=== PATIENT | male | born 1990 | race Two or more races ===

== ENCOUNTER 2020-05-30 11:54 | Outpatient (REF) | payer OTHER, SELFPAY ==
[2020-05-30 13:11] LABS: Free T4 (Free Thyroxine) 1.31 ng/dL (0.71-1.85)
== END 2020-05-30 11:55 | disposition home or self-care (01) ==
LOC: HO.LAB 11:54
PROVIDERS: PCP Internal Medicine; Visit Provider Internal Medicine Endocrinology, Diabetes & Metabolism
DX: E03.8 Other specified hypothyroidism (principal)
CPT/HCPCS: 36415; 84439; 84443

== ENCOUNTER → 2020-06-08 08:26 | Outpatient (BNVA) | payer OTHER, SELFPAY | PROVIDERS: PCP Internal Medicine; Referring Provider Internal Medicine; Visit Provider Internal Medicine Endocrinology, Diabetes & Metabolism | DX: E03.8 Other specified hypothyroidism (principal); E06.3 Autoimmune thyroiditis | CPT/HCPCS: 99212 ==

== ENCOUNTER 2020-07-19 15:19 | Outpatient (REF) | payer OTHER, SELFPAY | END 2020-07-19 15:20 | disposition home or self-care (01) | LOC: HO.LAB 15:19 | PROVIDERS: Visit Provider Internal Medicine | DX: Z20.822 Contact with and (suspected) exposure to COVID-19 (principal) | CPT/HCPCS: C9803; U0003 ==

== ENCOUNTER 2020-07-20 09:13 | Outpatient (REF) | payer OTHER, SELFPAY ==
[2020-07-20 11:59] LABS: SARS COV2 PCR INHOUSE NEGATIVE (Negative)
== END 2020-07-20 09:14 | disposition home or self-care (01) ==
LOC: HO.LAB 09:13
PROVIDERS: Visit Provider Internal Medicine
DX: Z20.822 Contact with and (suspected) exposure to COVID-19 (principal)
CPT/HCPCS: C9803; U0003

== ENCOUNTER 2020-11-18 12:19 | Outpatient (REF) | payer OTHER, SELFPAY ==
[2020-11-18 13:53] LABS: Thyroid Stimulating Hormone 1.13 uIU/mL (0.32-4.0)
== END 2020-11-18 12:20 | disposition home or self-care (01) ==
LOC: HO.LAB 12:19
PROVIDERS: PCP Internal Medicine; Visit Provider Internal Medicine Endocrinology, Diabetes & Metabolism
DX: E03.8 Other specified hypothyroidism (principal); E06.3 Autoimmune thyroiditis
CPT/HCPCS: 36415; 84439; 84443

== ENCOUNTER 2021-01-29 00:52 | Emergency (ER) | payer OTHER, SELFPAY ==
[2021-01-29 01:00] VITALS: BP 152/112; PULSE 81; RESP 16; TEMP 36.6; O2SAT 100; BMI 35.2
[2021-01-29 01:30] LABS: COVID-19 Test Negative (Negative); IDNOW Serial# 9DD0AD1C
--- NOTE | 2021-01-29 03:26 | ED.HA ---
HPI - Headache General Chief Complaint: Headache Stated Complaint: migraine for week Time Seen by Provider: 01/29/21 03:26 Source: patient Mode of arrival: ambulatory History of Present Illness HPI Narrative: 30-year-old male without significant past medical history presents with 1 week of right upper tooth pain after it cracked that has now resulted in increasing pain into the right maxillary temporal and frontal sinuses. Patient denies any fever, chills, neck pain, changes in vision or hearing. Related Data Previous Rx's Medication Instructions Recorded Synthroid 200 mcg tablet 200 mcg PO DAILY 90 Days #90 tab NS 06/08/20 (levothyroxine) amoxicillin 875 mg-potassium 1 tab PO Q12H 5 Days #10 tab 01/29/21 clavulanate 125 mg tablet (Augmentin) ketorolac 10 mg tablet 10 mg PO Q6H PRN 5 Days #20 tab 01/29/21 Allergies Allergy/AdvReac Type Severity Reaction Status Date / Time No Known Allergies Allergy Verified 01/29/21 01:00 [No Known Allergies*] Review of Systems Review of Systems: Pertinent positives and negatives as stated in HPI 10 point review of systems is otherwise negative. PMFSH Past Medical History Source: nursing notes reviewed Medical History Hypothyroidism Social History Social History Advance Directives: No Advance Directives Information Provided: Yes Physical Exam Vital Signs: Vital Signs: Last Vital Signs Temp 97.8 F 01/29/21 01:00 Pulse 81 01/29/21 01:00 Resp 16 01/29/21 01:00 BP 152/112 H 01/29/21 01:00 Pulse Ox 100 01/29/21 01:00 Body Mass Index 35.2 VITAL SIGNS: Reviewed. GENERAL: Well developed, well nourished, in no acute distress. HEAD: Normocephalic/atraumatic, tenderness to palpation across right axillary/frontal sinuses EYES: PERRLA, EOMI intact without pain, no nystagmus EARS: Ext canals without abnormality, TMs non-bulging and non-erythematous NOSE: Nares patent bilateral OROPHARYNX: no oral lesions noted, posterior pharynx clear and non-erythematous without noted tonsillar enlargement/erythema/exudates, noted cracked right upper molar with some mild swelling that was also noted to be swelling on the face NECK: Supple, no adenopathy LUNGS: Normal breath sounds. SpO2<100> CARDIOVASCULAR: Regular rate and rhythm without noted murmurs ABDOMEN: Soft, non-tender, non-distended with bowel sounds. NEUROLOGIC: Alert and oriented x 4. Strength and sensation to light touch were grossly intact x 4. Course Course Course Narrative: 30-year-old male with history and clinical presentation consistent with dental caries and toothache with likely sinus involvement. Patient will receive combination analgesics as well as initial antibiotics and then be discharged home in stable condition with remaining course of antibiotics and instructions to follow-up with dentist. MDM - Headache Lab Data Labs: Lab Results 01/29/21 Range/Units 01:07 COVID-19 (TOYA) Negative (Negative) COVID-19 Clin Com See Note Discharge Plan Discharge Clinical Impression: Headache, Sinusitis, Toothache Patient Disposition: Home, Self-Care Instructions: Sinusitis (ED), Toothache (ED) Additional Instructions: Tylenol 1000 mg, orally, every 6 hours as needed for pain control. Do not exceed 4000 mg within 24 hours. Follow-up with the dentist at your earliest convenience for definitive treatment. Follow-up with your primary care provider in the next 2-3 days for re-evaluation and further outpatient management. Return to the ER for acute worsening of symptoms. Prescriptions: New ketorolac 10 mg tablet 10 mg PO Q6H PRN (Reason: pain) 5 Days Qty: 20 RF: 0 amoxicillin-pot clavulanate [Augmentin] 875-125 mg tablet 1 tab PO Q12H 5 Days Qty: 10 RF: 0 No Action levothyroxine [Synthroid] 200 mcg tablet 200 mcg PO DAILY 90 Days Qty: 90 RF: 3
[2021-01-29] MEDS: Ketorolac Tromethamine 15 MG/ML VIAL IM (03:33)
[2021-01-29] MEDS: Acetaminophen 325 MG TABLET 975 MG PO (03:33)
[2021-01-29] MEDS: Amoxicillin/Potassium Clav 875 MG TABLET PO (03:34)
== END 2021-01-29 03:47 | disposition home or self-care (01) ==
PROVIDERS: Emergency Provider Student in an Organized Health Care Education/Training Program
DX: R51.9 Headache, unspecified (principal); J32.9 Chronic sinusitis, unspecified; K08.89 Other specified disorders of teeth and supporting structures; K02.9 Dental caries, unspecified; Z20.822 Contact with and (suspected) exposure to COVID-19
CPT/HCPCS: 36415; 87635; 96372; 99284; J1885

== ENCOUNTER 2021-02-05 13:21 | Emergency (ER) | payer BC, OTHER, SELFPAY ==
[2021-02-05 13:25] VITALS: BP 143/96; PULSE 92; RESP 16; TEMP 36.8; O2SAT 98; BMI 35.2
--- NOTE | 2021-02-05 13:58 | ED_ITS ---
HPI - Skin/Abscess/Foreign Bdy General Chief complaint: Skin/Abscess/Foreign Body Stated complaint: rash Time Seen by Provider: 02/05/21 13:50 Source: patient Mode of arrival: ambulatory Limitations: no limitations History of Present Illness HPI narrative: Patient presents to the ED for left side of chest painful rash that started as tingling yesterday and than rash appeared. patient States couple of days earlier he had bodyaches and fever and was told might have been due to a tooth infection. patient states he completed his amoxicilllin prescription. Related Data Previous Rx's Medication Instructions Recorded Synthroid 200 mcg tablet 200 mcg PO DAILY 90 Days #90 tab NS 06/08/20 (levothyroxine) amoxicillin 875 mg-potassium 1 tab PO Q12H 5 Days #10 tab 01/29/21 clavulanate 125 mg tablet (Augmentin) ketorolac 10 mg tablet 10 mg PO Q6H PRN 5 Days #20 tab 01/29/21 naproxen 500 mg tablet 500 mg PO BID PRN #20 tab 02/05/21 valacyclovir 1 gram tablet 1,000 mg PO TID 7 Days #21 tab 02/05/21 Allergies Allergy/AdvReac Type Severity Reaction Status Date / Time No Known Allergies Allergy Verified 01/29/21 01:00 [No Known Allergies*] Review of Systems Review of Systems: Yes all other systems are reviewed and are negative Constitutional: Constitutional: Reports as per HPI and Reports no additional constitutional complaints Eyes: Eyes: Reports as per HPI and Reports no additional eye complaints ENT: Reports system reviewed and no additional complaints, except as docum ented and Reports as per HPI Cardiovascular: Cardiovascular: Reports as per HPI, Reports no additional cardiovascular complaints and Reports chest pain (left sided painful rash) Respiratory: Respiratory: Reports as per HPI and Reports no additional respiratory complaints Gastrointestinal: Gastrointestinal: Reports as per HPI and Reports no additional gastrointestinal complaints Genitourinary: Genitourinary: Reports no additional male genitourinary complaints and Reports as per HPI Musculoskeletal: Musculoskeletal: Reports no additional musculoskeletal complaints and Reports as per HPI Integumentary/Breasts: Skin/Breast: Reports system reviewed and no additional complaints, except as docu and Reports as per HPI Neurologic: Reports system reviewed and no additional complaints, except as documented and Reports as per HPI [facility] Past Medical History Medical History Hypothyroidism Social History Social History Advance Directives: No Advance Directives Information Provided: Yes Physical Exam Vital Signs: Vital Signs: Last Vital Signs Temp 98.3 F 02/05/21 13:25 Pulse 92 02/05/21 13:25 Resp 16 02/05/21 13:25 BP 143/96 H 02/05/21 13:25 Pulse Ox 98 02/05/21 13:25 Body Mass Index 35.2 Const: General: cooperative, healthy appearing, comfortable, no acute distress, well developed, alert, awake and Physically active HENMT: Other: negative for rash in ears or on face. Head: Yes normal to inspection, Yes No palpable skull fracture present, Yes normocephalic, Yes atraumatic and No abrasion Eyes: General: appearance normal, both eyes and all related structures Neck: Neck: Yes normal visual inspection, Yes full ROM, Yes no lymphadenopathy, Yes no meningeal signs, Yes trachea midline, Yes supple and No tender Chest: Chest/axillae images: 1. positive for erythematous papules rash. Resp: Effort & Inspection: normal respiratory effort and able to speak in complete sentences Auscultation: clear to auscultation bilaterally Cardio: Jugular venous distension: no JVD Heart sounds: S1 normal heart sound present and S2 normal heart sound present GI: Inspection: Yes normal to inspection and No abdominal wall ecchymosis Palpation (GI): Soft to palpation, not firm, nontender, no guarding and not rig id : General: No CVA tenderness and Yes no CVA tenderness Back/Spine/Pelvis: Back: no CVA tenderness, No CVA tenderness and No back tenderness Skin: Other: shingles General skin exam: elasticity normal Neuro: General: no meningeal signs Extrem: General: Yes normal to inspection and Yes full ROM Psych: Appearance: grossly normal, well kempt and not disheveled Course Course Course Narrative: HIstory and physical exam indicates shingles Reevaluation(s) Reevaluation #1: Patieint will be discharged with pain meds and antiviral medication. no rash on nose or face to suspect herpes shingles in the eye. MDM - Skin/Abscess/Foreign Bdy MDM Narrative Medical decision making narrative: herpes zoster Discharge Plan Discharge Clinical Impression: Herpes zoster Patient Disposition: Home, Self-Care Instructions: Shingles (ED) Additional Instructions: REturn to the ED immediately for any rash on face/nose, ear pain, worseing, rash, headache, change in visions, or any other concerning symptmos. Please follow up with PCP. Try to stay away from 5 month baby and 5 yold child at least within the first 5 days of infection. if around kids wear gloves and mask and clean everything you touch. Prescriptions: New valacyclovir 1 gram tablet 1,000 mg PO TID 7 Days Qty: 21 RF: 0 naproxen 500 mg tablet 500 mg PO BID PRN (Reason: pain) Qty: 20 RF: 0 No Action ketorolac 10 mg tablet 10 mg PO Q6H PRN (Reason: pain) 5 Days Qty: 20 RF: 0 amoxicillin-pot clavulanate [Augmentin] 875-125 mg tablet 1 tab PO Q12H 5 Days Qty: 10 RF: 0 levothyroxine [Synthroid] 200 mcg tablet 200 mcg PO DAILY 90 Days Qty: 90 RF: 3 Stand Alone Forms: Work/School Release Interventions: ED Discharge Assessment Last Done: 02/05/21 14:28 Discharge Date/Time: 02/05/21 14:30 Print Language: Italian
== END 2021-02-05 14:30 | disposition home or self-care (01) ==
PROVIDERS: Emergency Provider Emergency Medicine; PCP Internal Medicine
DX: B02.9 Zoster without complications (principal); Z79.899 Other long term (current) drug therapy
CPT/HCPCS: 99283

== ENCOUNTER 2021-06-29 11:39 | Outpatient (REF) | payer BC, SELFPAY ==
--- NOTE | ~2021-06-29 | XR_ITS ---
EXAMINATION: XR FOOT, RIGHT CLINICAL INFORMATION: Pain COMPARISON: None TECHNIQUE: AP, lateral, and oblique views of the right foot. FINDINGS: Bone alignment is normal. No fracture or dislocation is seen. There are are small osteophytes at the talonavicular joint. Joint spaces are otherwise normal. There are large calcaneal spurs at the Achilles tendon insertion. XR/XR foot RT min 3V IMPRESSION: Calcaneal spurs at the Achilles tendon insertion. Mild degenerative changes at the talonavicular joint.
[2021-06-29 13:23] LABS: Free T4 (Free Thyroxine) 1.68 ng/dL (0.71-1.85); Thyroid Stimulating Hormone 2.42 uIU/mL (0.32-4.0)
== END 2021-06-29 11:40 | disposition home or self-care (01) ==
LOC: HO.LAB 11:39
PROVIDERS: PCP Internal Medicine; Visit Provider Internal Medicine
DX: M79.671 Pain in right foot (principal); E06.3 Autoimmune thyroiditis; E03.8 Other specified hypothyroidism
CPT/HCPCS: 36415; 73630; 84439; 84443

== ENCOUNTER → 2021-07-06 13:25 | Outpatient (BNVA) | payer BC, SELFPAY | PROVIDERS: PCP Internal Medicine; Visit Provider Nurse Practitioner Gerontology | DX: E06.3 Autoimmune thyroiditis (principal); E03.8 Other specified hypothyroidism; E66.9 Obesity, unspecified; Z68.34 Body mass index [BMI] 34.0-34.9, adult | CPT/HCPCS: 99212 ==

== ENCOUNTER 2021-08-29 12:25 | Outpatient (REF) | payer BC, SELFPAY ==
[2021-08-29 13:09] LABS: COVID-19 Test Positive (Negative); IDNOW Serial# 55D5AD1C
== END 2021-08-29 12:26 | disposition home or self-care (01) ==
LOC: HO.LAB 12:25
PROVIDERS: Visit Provider Internal Medicine
DX: Z20.822 Contact with and (suspected) exposure to COVID-19 (principal)
CPT/HCPCS: 87635; C9803

== ENCOUNTER 2022-04-28 08:57 | Outpatient (REF) | payer BC, SELFPAY ==
[2022-04-28 10:21] LABS: Free T4 (Free Thyroxine) 1.23 ng/dL (0.71-1.85)
== END 2022-04-28 08:58 | disposition home or self-care (01) ==
LOC: HO.LAB 08:57
PROVIDERS: PCP Internal Medicine; Visit Provider Nurse Practitioner Gerontology
DX: E03.8 Other specified hypothyroidism (principal); E06.3 Autoimmune thyroiditis
CPT/HCPCS: 36415; 84439; 84443

== ENCOUNTER 2022-09-07 14:33 | Outpatient (REF) | payer BC, SELFPAY ==
[2022-09-07 16:37] LABS: Alanine Aminotransferase 35 U/L (0-40); Albumin Level 4.3 g/dL (3.5-5.0); Alkaline Phosphatase 164 U/L (39-117); Anion Gap 14 (12-20); Aspartate Amino Transferase 21 U/L (5-37); Bilirubin Total 1.1 mg/dL (0.0-1.0); Blood Urea Nitrogen 8 mg/dL (9-16); Calcium 9.6 mg/dL (8.4-10.2); Carbon Dioxide 25 mmol/L (22-29); Chloride 106 mmol/L (96-108); Cholesterol 191 mg/dL; Estimated Glomerular Filt Rate > 60; Glucose Fasting 97 mg/dL (60-99); HDL Cholesterol 25 mg/dL; LDL Cholesterol Calculated 145 mg/dl; Potassium 4.2 mmol/L (3.3-5.1); Sodium 141 mmol/L (135-145); Total Protein 7.1 g/dL (6.5-8.0); Triglycerides 106 mg/dL
[2022-09-07 16:51] LABS: Thyroid Stimulating Hormone 3.12 uIU/mL (0.32-4.0)
== END 2022-09-07 14:34 | disposition home or self-care (01) ==
LOC: HO.LAB 14:33
PROVIDERS: PCP Internal Medicine; Visit Provider Internal Medicine
DX: E66.9 Obesity, unspecified (principal); E03.8 Other specified hypothyroidism; E06.3 Autoimmune thyroiditis
CPT/HCPCS: 36415; 80053; 80061; 84443

== ENCOUNTER 2023-09-17 09:00 | Outpatient (AMB) | payer BC, SELFPAY ==
[2023-09-17 09:17] VITALS: BP 136/82; PULSE 91; O2SAT 98; BMI 36.4
--- NOTE | 2023-09-17 09:17 | MHC.PC.OV ---
Vital Signs 09/17/23 09:17 Height 6 ft Weight 268 lb 6 oz BMI 36.4 BP 136/82 Blood Pressure Location Lt brachial Position Sitting Pulse 91 Pulse Source Pulse Oximeter Pulse Oximetry (%) 98 Oxygen Delivery Method Room Air Intake Visit Reasons: Annual Exam Intake Note: Patient is here today for a physical. 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 Required: No Accompanied by: Self / Same As Patient Allergies No Known Allergies [No Known Allergies*] Allergy (Verified 09/17/23 09:30) Medication List - Last Reconciled 09/17/23 by Leanna Grimaldo MD Synthroid (levothyroxine) 200 mcg PO DAILY 90 days NS Tobacco use date assessed: 09/17/23 Dental Screening Dental Screen Date: 09/17/23 Did you have a dental visit in the last 12 months?: Yes Did you have a dental problem in the last 6 months where you did not have access to dental care?: No Was dental information given to patient?: Patient has dentist HPI HPI Comments History of Present Illness Details This is a 32-year-old male that comes for his physical exam. Has family history of colon cancer in first-degree relative at 51 years old therefore you will need his 1st colonoscopy at 38 years old. Denies any chest pain or shortness on breath. No acute complaints. Compliant with medication. TSH will be repeated. He has obese with a BMI of 36.4 and has tried diet and exercise in the past with no significant improvement. I will start him on Wegovy. Side effects such as nausea, vomiting and abdominal pain were thoroughly explained. [facility] Medical History (Updated 09/17/23 @ 11:52 by Leanna Grimaldo MD) Obesity (BMI 35.0-39.9 without comorbidity) Obesity due to excess calories BMI 33.0-33.9,adult Intractable right heel pain Hypothyroidism Surgical History No pertinent past surgical history Family History Mother No problems noted. Father Colon cancer, Onset Age: 51 Social History Housing: House Alcohol intake: current Alcohol intake frequency: holidays/special occasions only Alcohol type: beer Patient Tobacco Use Status: Never used Tobacco e-Cigarette/Vaping Use: Never Used Second Hand Smoke Exposure: No service: No Current occupational status: employed Current occupational exposures/hazards: No Cognitive needs: No Hearing needs: No Vision needs: No Questionnaire PHQ-9 Over the last 2 weeks, how often have you been bothered by any of the following problems? 1. Little interest or pleasure in doing things: not at all 2. Feeling down, depressed, or hopeless: not at all 3. Trouble falling or staying asleep, or sleeping too much: not at all 4. Feeling tired or having little energy: not at all 5. Poor appetite or overeating: not at all 6. Feeling bad about yourself - or that you are a failure or have let yourself or your family down: not at all 7. Trouble concentrating on things, such as reading the newspaper or watching television: not at all 8. Moving or speaking so slowly that other people could have noticed. Or the opposite - being so fidgety or restless that you have been moving around a lot more than usual: not at all 9. Thoughts that you would be better off or of hurting yourself in some way: not at all Total score: 0 Depression Screening Interpretation: Negative Depression Screening Done: Yes 17666 - PHQ-9 Billing: Yes Source: Developed by Drs. Anjum Prabhakar, Alla Hardy, Juan Vargas and colleagues, with an educational payal from [employer]. Thrive Questionnaire Date Thrive assessed: 09/17/23 I am a: Patient What is your living situation today?: I have a steady place to live Within the past 12 months, did the food you bought not last and you didn't have the money to get more?: Never true Within the past 12 months, did you worry whether your food would run out before you got money to buy more?: Never true Do you have trouble paying for medicines?: No Do you have trouble getting transportation to medical appointments?: No Do you have trouble paying your heating and electricity bill?: No Do you have trouble taking care of your child, family member or friend?: No Do you have trouble with day-to-day activities such as bathing, preparing meals, shopping, managing finances, etc.?: No Are you currently unemployed and looking for a job?: No Are you interested in more education?: No Please select the resources that you would like help with: None Currently or been in a relationship where the following occur: no concerns reported THRIVE Score: 0 AUDIT C Alcohol Use Questionnaire (AUDIT-C) 1. How often do you have a drink containing alcohol?: Monthly or less 2. How many drinks containing alcohol do you have on a typical day when you are drinking?: 1 or 2 3. How often do you have six or more drinks on one occasion?: Never Total Score: 1 Score Reviewed/Action Taken: No АЛЕКСАНДР-7 AMB Questionnaire АЛЕКСАНДР-7 Date АЛЕКСАНДР - 7 assessed: 09/17/23 Feeling nervous, anxious, or on edge: 0 = Not at all Not being able to stop or control worryin = Not at all Worrying too much about different things: 0 = Not at all Trouble relaxin = Not at all Being so restless that it is hard to sit still: 0 = Not at all Becoming easily annoyed or irritable: 0 = Not at all Feeling afraid as if something awful might happen: 0 = Not at all Total АЛЕКСАНДР-7 score (0-4 normal; 5-9 mild; 10-14 moderate; 15-21 severe): 0 Source: Developed by Drs. Anjum Prabhakar, Alla Hardy, Juan Vargas and colleagues, with an educational payal from [employer]. АЛЕКСАНДР-7 Assessment Billing АЛЕКСАНДР-7 Assessment Tool: АЛЕКСАНДР-7 Assessment 39102 Review of Systems Const All systems reviewed & are unremarkable except as noted in HPI and below Card Denies chest pain at rest, Denies chest pain with activity, Denies edema, Denies irregular heart rhythm, Denies claudication, Denies dyspnea, Denies dyspnea on exertion, Denies orthopnea, Denies paroxysmal nocturnal dyspnea and Denies slow heart rate Resp Denies cough, Denies dyspnea and Denies dyspnea on exertion GI Denies abdominal pain, Denies change in bowel habits, Denies excessive flatus, Denies nausea and Denies vomiting Denies urinary hesitancy, Denies urinary incontinence and Denies urinary urgency Physical exam (Primary Care) Vital Signs: Last Vital Signs Pulse 91 09/17/23 09:17 BP 136/82 09/17/23 09:17 Pulse Ox 98 09/17/23 09:17 Oxygen Delivery Method Room Air 09/17/23 09:17 BMI result Body Mass Index 36.4 BMI Assessment/Plan discussion: High BMI High, discussed plan: lifestyle, weight reduction, dietary and physical activity Tobacco/Smoking Status: Tobacco use Status Tobacco use date assessed 09/17/23 09/17/23 09:24 Patient Tobacco Use Status Never used Tobacco 09/17/23 09:24 e-Cigarette/Vaping Use Never Used 09/17/23 09:24 PHQ-9: PHQ-9 Score PHQ-9: Total score 0 09/17/23 09:34 Depression Screening Interpretation: Negative Thrive Assessment: Date of Thrive Assessment Date Thrive assessed 09/17/23 09/17/23 09:24 Currently or been in a relationship where the following occur: no concerns reported Const Orientation/consciousness: patient oriented x3 HENMT Head: Yes normal to inspection, Yes normocephalic and Yes atraumatic Ears: external ears normal Eyes General: appearance normal, both eyes and all related structures Eyelids: Yes eyelids normal Conjunctivae: conjunctivae normal Neck Neck: Yes normal visual inspection and Yes supple Resp Effort & Inspection: normal respiratory effort Auscultation: clear to auscultation bilaterally Cardio Jugular venous distension: no JVD Rate: regular rate Rhythm: regular rhythm Heart sounds: S1 normal heart sound present and S2 normal heart sound present GI Inspection: Yes normal to inspection Palpation (GI): Soft to palpation and nontender Auscultation: normal bowel sounds Skin General skin exam: no rashes or lesions noted Neuro General: patient oriented x3 and no focal motor deficits Extrem General: Yes full ROM Psych Appearance: grossly normal Assessment and Plan Assessment & Plan (1) Physical exam: Code(s): Z00.00 - Encounter for general adult medical examination without abnormal findings Plan: Repeat in a year. Orders: Orders Thyroid Stimulating Hormone Today E03.8 - Other specified hypothyroidism, E06.3 - Autoimmune thyroiditis Referrals Ophthalmology Referral H53.8 - Other visual disturbances Medications: New triamcinolone acetonide 0.1% 1 appl topical BID PRN 30 grams 1RF rash 15 days Coding Level of Care Code Est Pt Prev Care 18-39y(35381) Diagnoses Physical exam Z00.00 Additional Codes АЛЕКСАНДР-7 Assessment Billing - АЛЕКСАНДР-7 Assessment Tool: АЛЕКСАНДР-7 Assessment 46337 ([id number]) Time Spent (min) 32
== END 2023-09-17 09:40 | disposition home or self-care (01) ==
PROVIDERS: Visit Provider Internal Medicine
DX: Z00.00 Encounter for general adult medical examination without abnormal findings (principal)
CPT/HCPCS: 99395

== ENCOUNTER 2024-02-03 07:56 | Outpatient (REF) | payer BC, SELFPAY | END 2024-02-03 07:57 | disposition home or self-care (01) | LOC: HO.LAB 07:56 | PROVIDERS: PCP Internal Medicine; Visit Provider Internal Medicine | DX: L98.9 Disorder of the skin and subcutaneous tissue, unspecified (principal); E03.8 Other specified hypothyroidism; E06.3 Autoimmune thyroiditis; Z28.21 Immunization not carried out because of patient refusal | CPT/HCPCS: 36415; 84443; 90471 ==

== ENCOUNTER 2024-02-03 07:56 | Outpatient (AMB) | payer BC, SELFPAY ==
[2024-02-03 08:04] VITALS: BP 130/80; BMI 35.5
--- NOTE | 2024-02-03 08:04 | MHC.PC.OV ---
Vital Signs 02/03/24 08:04 Height 6 ft Weight 262 lb BMI 35.5 BP 130/80 Blood Pressure Location Lt brachial Position Sitting Intake Visit Reasons: swelling and pain in bilateral legs x 3-4 days. Group Therapy Counselor Required: No Accompanied by: Self / Same As Patient Allergies No Known Allergies [No Known Allergies*] Allergy (Verified 02/03/24 08:16) Medication List - Last Reconciled 02/03/24 by Leanna Grimaldo MD Synthroid (levothyroxine) 200 mcg PO DAILY 90 days NS triamcinolone acetonide 0.1% 1 appl topical BID PRN 15 days Tobacco use date assessed: 09/17/23 Dental Screening Dental Screen Date: 02/03/24 Did you have a dental visit in the last 12 months?: Yes Did you have a dental problem in the last 6 months where you did not have access to dental care?: No Was dental information given to patient?: Patient has dentist HPI HPI Comments History of Present Illness Details This is a 33-year-old male with hypothyroidism that complains of dry cracked skin inhaled bilateral that started few weeks ago. He does have right plantar fascitis and sometimes needs to be out of work for 3-4 days to recover. Will order TSH to check for his hypothyroidism. Will order a cream for his skin that is tender to palpation. Will refer to Podiatry for plantar fascitis. Exercises for plantar fascitis were discussed. [facility] Medical History (Updated 02/03/24 @ 08:30 by Leanna Grimaldo MD) Obesity (BMI 35.0-39.9 without comorbidity) Obesity due to excess calories BMI 33.0-33.9,adult Intractable right heel pain Hypothyroidism Surgical History No pertinent past surgical history Family History Mother No problems noted. Father Colon cancer, Onset Age: 51 Social History Housing: House Alcohol intake: current Alcohol intake frequency: holidays/special occasions only Alcohol type: beer Patient Tobacco Use Status: Never used Tobacco e-Cigarette/Vaping Use: Never Used Second Hand Smoke Exposure: No service: No Current occupational status: employed Current occupational exposures/hazards: No Cognitive needs: No Hearing needs: No Vision needs: No Questionnaire Thrive Questionnaire Date Thrive assessed: 09/17/23 АЛЕКСАНДР-7 AMB Questionnaire АЛЕКСАНДР-7 Date АЛЕКСАНДР - 7 assessed: 09/17/23 Source: Developed by Drs. Anjum Prabhakar, Alla Hardy, Juan Vargas and colleagues, with an educational payal from [employer]. Review of Systems Const All systems reviewed & are unremarkable except as noted in HPI and below Card Denies chest pain at rest, Denies chest pain with activity, Denies edema, Denies irregular heart rhythm, Denies claudication, Denies dyspnea, Denies dyspnea on exertion, Denies orthopnea, Denies paroxysmal nocturnal dyspnea and Denies slow heart rate Resp Denies cough, Denies dyspnea and Denies dyspnea on exertion GI Denies abdominal pain, Denies change in bowel habits, Denies excessive flatus, Denies nausea and Denies vomiting Denies urinary hesitancy, Denies urinary incontinence and Denies urinary urgency Musc Denies abnormal gait, Denies atrophy, Denies deformity and Denies limited range of motion Skin/Breast Denies bleeding lesions, Denies changing lesions, Reports new lesions and Denies rash Neuro Denies abnormal gait, Denies behavioral changes and Denies lack of coordination Psych Denies behavioral changes Physical exam (Primary Care) Vital Signs: Last Vital Signs BP 130/80 02/03/24 08:04 BMI result Body Mass Index 35.5 BMI Assessment/Plan discussion: High BMI High, discussed plan: lifestyle, weight reduction, dietary and physical activity Tobacco/Smoking Status: Tobacco use Status Tobacco use date assessed 09/17/23 02/03/24 08:07 Patient Tobacco Use Status Never used Tobacco 02/03/24 08:07 e-Cigarette/Vaping Use Never Used 02/03/24 08:07 Thrive Assessment: Date of Thrive Assessment Date Thrive assessed 09/17/23 02/03/24 08:07 Resp Effort & Inspection: normal respiratory effort Auscultation: clear to auscultation bilaterally Cardio Jugular venous distension: no JVD Rate: regular rate Rhythm: regular rhythm Heart sounds: S1 normal heart sound present and S2 normal heart sound present Skin General skin exam: other (dry skin open in heels bilateral) Extrem General: Yes full ROM Office Procedures Flu Questionnaire Does the patient have a severe egg allergy?: No Immunizations Fluarix Triv [id number] (PF) 45 mcg (15 mcg x 3)/0.5 mL IM syringe Performing Provider: Leanna Grimaldo MD [place] [facility] Documented (not given) by: MARJORIE Keene on 02/03/24 08:08 Reason Not Given: Patient Refused Coding Level of Care Code Est Pt Level 3 (32815) Complex EM visit Add On G2211 Diagnoses Skin lesion 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 (2) Hypothyroidism: Code(s): E03.9 - Hypothyroidism, unspecified Category: Medical Qualifiers: Hypothyroidism type: due to Braydon's thyroiditis Qualified Code(s): E03.8 - Other specified hypothyroidism; E06.3 - Autoimmune thyroiditis Plan: Check TSH today. Orders: Orders Influenza [id number] Immunization Today Z23 - Encounter for immunization Thyroid Stimulating Hormone Today E03.8 - Other specified hypothyroidism, E06.3 - Autoimmune thyroiditis Referrals Podiatry Referral M72.2 - Plantar fascial fibromatosis Medications: New betamethasone valerate 0.1% 1 appl topical DAILY 2 weeks PRN 15 grams 1RF skin irritation
== END 2024-02-03 08:27 | disposition home or self-care (01) ==
PROVIDERS: PCP Internal Medicine; Visit Provider Internal Medicine
DX: L98.9 Disorder of the skin and subcutaneous tissue, unspecified (principal); E03.8 Other specified hypothyroidism; E06.3 Autoimmune thyroiditis; Z23 Encounter for immunization

== ENCOUNTER 2025-03-15 13:35 | Outpatient (AMB) | payer OTHER, SELFPAY ==
--- NOTE | 2025-03-15 13:41 | A.OFFPC_ITS ---
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 Driver Required: No Accompanied by: Self / Same As Patient Allergies No Known Allergies (No Known Allergies*) Allergy (Verified 03/15/25 14:00) Medication List - Last Reconciled 03/15/25 by Leanna Grimaldo MD Synthroid (levothyroxine) 200 mcg PO DAILY 90 days NS Tobacco use date assessed: 03/15/25 Dental Screening Dental Screen Date: 03/15/25 Did you have a dental visit in the last 12 months?: No Did you have a dental problem in the last 6 months where you did not have access to dental care?: No Was dental information given to patient?: No HPI HPI Comments History of Present Illness Details The patient is a 49-year-old individual presenting for his physical exam. The patient has a 23-year history of hypothyroidism and takes Synthroid 200 mcg daily. The patient has had recent difficulty obtaining the medication due to insurance issues but has had a new prescription sent. The patient's father of colon cancer at age 51, and the patient was advised to begin colonoscopy screening at age 38. The patient's mother is alive and has no health problems. The patient has no prior surgeries and no known drug allergies. Declines flu vaccine today. [facility] Medical History Obesity (BMI 35.0-39.9 without comorbidity) Obesity due to excess calories BMI 33.0-33.9,adult Intractable right heel pain Hypothyroidism Surgical History No pertinent past surgical history Family History Mother No problems noted. Father Colon cancer, Onset Age: 51 Social History Housing: House Alcohol intake: current Alcohol intake frequency: holidays/special occasions only Alcohol type: beer Patient Tobacco Use Status: Never used Tobacco e-Cigarette/Vaping Use: Never Used Second Hand Smoke Exposure: No service: No Current occupational status: employed Current occupational exposures/hazards: No Cognitive needs: No Hearing needs: No Vision needs: No Questionnaire PHQ-9 Over the last 2 weeks, how often have you been bothered by any of the following problems? 1. Little interest or pleasure in doing things: not at all 2. Feeling down, depressed, or hopeless: not at all 3. Trouble falling or staying asleep, or sleeping too much: not at all 4. Feeling tired or having little energy: not at all 5. Poor appetite or overeating: not at all 6. Feeling bad about yourself - or that you are a failure or have let yourself or your family down: not at all 7. Trouble concentrating on things, such as reading the newspaper or watching television: not at all 8. Moving or speaking so slowly that other people could have noticed. Or the opposite - being so fidgety or restless that you have been moving around a lot more than usual: not at all 9. Thoughts that you would be better off or of hurting yourself in some way: not at all Total score: 0 Depression Screening Interpretation: Negative Depression Screening Done: Yes 13646 - PHQ-9 Billing: Yes Source: Developed by Drs. Anjum Prabhakar, Alla Hardy, Juan Vargas and colleagues, with an educational payal from [employer] Thrive Questionnaire Date Thrive assessed: 09/17/23 I am a: Patient What is your living situation today?: I have a steady place to live Within the past 12 months, did the food you bought not last and you didn't have the money to get more?: Never true Within the past 12 months, did you worry whether your food would run out before you got money to buy more?: Never true Do you have trouble paying for medicines?: I choose not to answer this question Do you have trouble getting transportation to medical appointments?: No Do you have trouble paying your heating and electricity bill?: No Do you have trouble taking care of your child, family member or friend?: No Do you have trouble with day-to-day activities such as bathing, preparing meals, shopping, managing finances, etc.?: No Are you currently unemployed and looking for a job?: No Are you interested in more education?: No Please select the resources that you would like help with: None Currently or been in a relationship where the following occur: No concerns reported THRIVE Score: 0 AUDIT C Alcohol Use Questionnaire (AUDIT-C) 1. How often do you have a drink containing alcohol?: Never Total Score: 0 Score Reviewed/Action Taken: No АЛЕКСАНДР-7 AMB Questionnaire АЛЕКСАНДР-7 Date АЛЕКСАНДР - 7 assessed: 09/17/23 Feeling nervous, anxious, or on edge: 0 = Not at all Not being able to stop or control worryin = Not at all Worrying too much about different things: 0 = Not at all Trouble relaxin = Not at all Being so restless that it is hard to sit still: 0 = Not at all Becoming easily annoyed or irritable: 0 = Not at all Feeling afraid as if something awful might happen: 0 = Not at all Total АЛЕКСАНДР-7 score (0-4 normal; 5-9 mild; 10-14 moderate; 15-21 severe): 0 Source: Developed by Drs. Anjum Prabhakar, Alla Hardy, Juan Vargas and colleagues, with an educational payal from [employer]. АЛЕКСАНДР-7 Assessment Billing АЛЕКСАНДР-7 Assessment Tool: АЛЕКСАНДР-7 Assessment 32161 Review of Systems Const All systems reviewed & are unremarkable except as noted in HPI and below Card Denies chest pain at rest, Denies chest pain with activity, Denies edema, Denies irregular heart rhythm, Denies claudication, Denies dyspnea, Denies dyspnea on exertion, Denies orthopnea, Denies paroxysmal nocturnal dyspnea and Denies slow heart rate Resp Denies cough, Denies dyspnea and Denies dyspnea on exertion GI Denies abdominal pain, Denies change in bowel habits, Denies excessive flatus, Denies nausea and Denies vomiting Denies urinary hesitancy, Denies urinary incontinence and Denies urinary urgency Neuro Denies lack of coordination Physical exam (Primary Care) Vital Signs: Last Vital Signs Pulse 89 03/15/25 13:42 Resp 18 03/15/25 13:42 BP 128/88 03/15/25 13:42 Pulse Ox 99 03/15/25 13:42 Oxygen Delivery Method Room Air 03/15/25 13:42 BMI result Body Mass Index 34.0 BMI Assessment/Plan discussion: High BMI High, discussed plan: lifestyle, weight reduction, dietary and physical activity Tobacco/Smoking Status: Tobacco use Status Tobacco use date assessed 03/15/25 03/15/25 13:48 Patient Tobacco Use Status Never used Tobacco 03/15/25 13:48 e-Cigarette/Vaping Use Never Used 03/15/25 13:48 PHQ-9: PHQ-9 Score PHQ-9: Total score 0 03/15/25 14:05 Depression Screening Interpretation: Negative Thrive Assessment: Date of Thrive Assessment Date Thrive assessed 09/17/23 03/15/25 13:48 Currently or been in a relationship where the following occur: No concerns reported HENMT Head: Yes normal to inspection, Yes normocephalic and Yes atraumatic Ears: external ears normal Eyes General: appearance normal, both eyes and all related structures Eyelids: Yes eyelids normal Conjunctivae: conjunctivae normal Neck Neck: Yes normal visual inspection and Yes supple Resp Effort & Inspection: normal respiratory effort Auscultation: clear to auscultation bilaterally Cardio Jugular venous distension: no JVD Rate: regular rate Rhythm: regular rhythm Heart sounds: S1 normal heart sound present and S2 normal heart sound present GI Inspection: Yes normal to inspection Palpation (GI): Soft to palpation and nontender Auscultation: normal bowel sounds Skin General skin exam: no rashes or lesions noted Neuro General: no focal motor deficits Extrem General: Yes full ROM Psych Appearance: grossly normal Coding Level of Care Code Est Pt Prev Care 18-39y(96372) Diagnoses Physical exam Z00.00 Additional Codes АЛЕКСАНДР-7 Assessment Billing - АЛЕКСАНДР-7 Assessment Tool: АЛЕКСАНДР-7 Assessment 74102 ([id number]) PHQ-9 - 67710 - PHQ-9 Billing: Yes ([id number]) Time Spent (min) 30 Assessment & Plan Assessment & Plan (1) Physical exam: Code(s): Z00.00 - Encounter for general adult medical examination without abnormal findings Category: Medical Plan Plan 1. Physical exam Repeat in a year. The patient has a significant family history of colon cancer, as the patient's father from the disease at age 51. The patient is overdue for a screening colonoscopy, which was recommended to be initiated at age 38. Counseling was provided regarding the importance of scheduling this procedure. Orders: Orders Thyroid Stimulating Hormone Today E03.8 - Other specified hypothyroidism, E06.3 - Autoimmune thyroiditis Medications: Refilled Synthroid (levothyroxine) Dispense as written, brand medically necessary. Do not substitute. 200 mcg PO DAILY 90 tabs 3RF 90 days NS E03.9 - Hypothyroidism, unspecified
[2025-03-15 13:42] VITALS: BP 128/88; PULSE 89; RESP 18; O2SAT 99; BMI 34.0
== END 2025-03-15 14:15 | disposition home or self-care (01) ==
LOC: HO.HMCH 13:36
PROVIDERS: PCP Internal Medicine; Visit Provider Internal Medicine
DX: Z00.00 Encounter for general adult medical examination without abnormal findings (principal)

== ENCOUNTER 2025-03-15 13:35 | Outpatient (REF) | payer OTHER, SELFPAY ==
[2025-03-15 16:05] LABS: Thyroid Stimulating Hormone 1.49 uIU/mL (0.32-4.0)
== END 2025-03-15 13:36 | disposition home or self-care (01) ==
LOC: HO.LAB 13:35
PROVIDERS: PCP Internal Medicine; Visit Provider Internal Medicine
DX: Z00.00 Encounter for general adult medical examination without abnormal findings (principal); E03.8 Other specified hypothyroidism; E06.3 Autoimmune thyroiditis; Z13.31 Encounter for screening for depression; Z13.39 Encounter for screening examination for other mental health and behavioral disorders
CPT/HCPCS: 36415; 84443; 96127; 99395